=== PATIENT | male | born 1995 | race African-American/Black ===

== ENCOUNTER 2016-11-27 15:40 | Emergency (ER) | payer BC ==
[2016-11-27 16:12] VITALS: BP 112/72
--- NOTE | 2016-11-27 16:17 | ED Physician Documentation ---
Seizure - HISTORIAN Historian: patient - HPI Stated Complaint: Evaluation of Seizures Chief Complaint: Seizure Last known Well Date: 11/27/16 Last Known Well Time: 16:37 (no seizure today) Last known Well Code/Unknown Code: Known Witnessed By: family Preceding Symptoms: none Further Comments: yes (Patient was diagnosed with petimale epileptic siezures at about 13 years of age. Had been on depakote until April of this year. It was controling the seizures well but was having side effects of depression and was mentlaly slowing him down. Was placed on topriramte at that time and he does not feel that it has been holding the seizures as well. Over the last 3 weeks they have been getting worse, he has been blacking some, is having one or two almost every day. Has not been getting as much sleep. Has been stressed out some.) - ROS NEURO/PSYCH: denies: headache, fainting - PAST HX Previous seizure/seizure disorder: other (ADHD, is not taking any medication for it) Other History: none Surgeries/Procedures: none Immunizations: UTD Allergies/Adverse Reactions: Allergies Allergy/AdvReac Type Severity Reaction Status Date / Time amoxicillin Allergy Verified 11/27/16 16:13 Home Medications: Ambulatory Orders Medication Instructions Recorded Amitriptyline HCl [Elavil] 50 mg PO HS 11/27/16 Topiramate [Trokendi Xr] 200 mg PO DAILY 11/27/16 - SOCIAL HX Smoking History: non-smoker Alcohol Use: occasionally Drug Use: none - FAMILY HX Family History: none - VITAL SIGNS Vital Signs: Vital Signs Temp Pulse Resp BP Pulse Ox 97 F L 70 16 112/72 99 11/27/16 15:40 11/27/16 15:40 11/27/16 15:40 11/27/16 15:40 11/27/16 15:40 - REVIEWED ASSESSMENTS Nursing Assessment Reviewed: Yes Vitals Reviewed: Yes Progress - Progress Progress: Mother accompanied patient. Advised that I could do some blood work to make sure electrolytes were not out of titler. She wanted to have his meidcations changed. Advised that I could not do that in the ED, that he needed to have someone follow up once his medications were changed. She had contacted [facility] and they advised her that they would not do it. I advised her to seek the services of a primary care provider until he could be seen by a neurologist but she did not want to do that either. Advised to call neulogist again and see if he could be seen sooner. Neurologist at home that has been prescribing his medication did not want to change them without seeing him. Patient and his mother left AMA. Patient advised to get regular sleep priro to him leaving. Seizure Physical Exam - Physical Exam General Appearance: no acute distress Altered Mental Status Higher Functions: alert, oriented x3, no evidence of acute CVA, mood/affect nml Neck/Back: normal inspection, thyroid normal, supple Respiratory: no resp. distress, breath sounds nml CVS: reg rate & rhythm, heart sounds normal, equal pulses, no murmur, no gallop Abdomen: non-tender, no organomegaly, nml bowel sounds, no distention Skin: warm/dry, normal color Extremities: normal range of motion, non-tender Observed Seizure Activity in ED: other (appear to be having petti mal type) - Nexus Criteria Neg Nexus Criteria: Nexus criteria neg Discharge Clincal Impression: Seizure Referrals: Primary Doctor,No [Primary Care Provider] - 2 Days Disposition: AGAINST MEDICAL ADVICE Decision to Admit: NO Date of Decison to Admit: 11/27/16 Decision Time: 16:32
== END 2016-11-27 16:30 | disposition left against medical advice (07) ==
LOC: ED 15:40
DX: G40.909 Epilepsy, unspecified, not intractable, without status epilepticus (principal); Z53.21 Procedure and treatment not carried out due to patient leaving prior to being seen by health care provider
CPT/HCPCS: 99283

== ENCOUNTER 2017-01-29 15:33 | Emergency (ER) | payer BC ==
--- NOTE | 2017-01-29 15:51 | ED Physician Documentation ---
Seizure - HISTORIAN Historian: patient - HPI Chief Complaint: Seizure Timing/Onset/Duration: unknown duration Last known Well Date: 01/29/17 Last Known Well Time: 09:00 Last known Well Code/Unknown Code: Known Preceding Symptoms: none Character of Seizure(s): denies: incontinence of urine, incontinence of stool Postictal Symptoms: confusion Location of Injury: face (chin) Further Comments: yes (21 year old male patient brought in via EMS after un- witnessed seizure. Patient states he woke up on the ground, "I'm not sure what happened." Patient states he did not take his Keppra last night because he was drinking. Patient reports recently changing to Keppra. Patient states EMS had him take 2 additional 500mg tabs of Keppra on scene.) - ROS NEURO/PSYCH: denies: headache, fainting, dizziness, anxiety, depression, other EYES/ENT: none CVS/RESP: none GI/: denies: nausea, vomiting, diarrhea MS/SKIN/LYMPH: none - PAST HX Previous seizure/seizure disorder: since childhood Etiology: other Other History: other (depression - on amitriptyline) Allergies/Adverse Reactions: Allergies Allergy/AdvReac Type Severity Reaction Status Date / Time amoxicillin Allergy Verified 01/29/17 15:54 Home Medications: Ambulatory Orders Medication Instructions Recorded Levetiracetam [Levetiracetam] 1,000 mg PO BID 01/29/17 - SOCIAL HX Smoking History: non-smoker Alcohol Use: other (last night) Drug Use: marijuana (occassional) - FAMILY HX Family History: denies: none - VITAL SIGNS Vital Signs: Vital Signs Temp Pulse Resp BP Pulse Ox 97.8 F 70 16 101/58 99 01/29/17 15:35 01/29/17 17:46 01/29/17 17:46 01/29/17 17:46 01/29/17 17:46 - REVIEWED ASSESSMENTS Nursing Assessment Reviewed: Yes Vitals Reviewed: Yes Procedures Wound Location: face (chin) Wound Length: 1 Wound's Depth, Shape: irregular Wound Explored: clean Irrigated w/ Saline (ccs): 50 Betadine Prep?: No (chlorhexadine) Anesthesia: 1% Lidocaine (with neut) Suture Size/Type: 6:0 Number of Sutures: 2 Sterile Dressing Applied?: Yes Progress - Progress Progress: Old records reviewed Lab results reviewed with patient. Explained alcohol and marijuana do not mix with Keppra, explained increase risk of seizures with skipping doses and consuming alcohol. Patient verbalized understanding. Patient is followed by neurologist in [place], [place]. Patient refuses transfer, wants to follow up with his neurologist at home. Seizure likely due to missed dose, ETOH consumption and THC use. ED Results Lab/Radiology - Lab Results Lab Results: Lab Results 01/29/17 01/29/17 15:57 15:57 WBC 7.40 K/ul K/ul (4.00-12.00) RBC 5.36 M/ul H M/ul (3.90-5.20) Hgb 16.0 g/dL g/dL (12.0-18.0) Hct 46.3 % % (37.0-53.0) MCV 86.4 fl fl (80.0-100.0) MCH 29.9 pg pg (28.0-34.0) MCHC 34.6 g/dL g/dL (30.0-36.0) RDW 13.0 % % (11.3-14.3) Plt Count 181 K/mm3 K/mm3 (130-400) Neut % (Auto) 42.5 % % (39.0-79.0) Lymph % (Auto) 46.3 % % (16.0-50.0) [place] % (Auto) 5.3 % % (0.0-11.0) Eos % (Auto) 1.5 % % (0.0-6.8) Baso % (Auto) 0.7 (0.0-1.5) Neut # (Auto) 3.1 # k/uL # k/uL (1.4-7.7) Lymph # (Auto) 3.4 # k/uL # k/uL (0.6-4.0) [place] # (Auto) 0.4 # k/uL # k/uL (0.0-0.9) Eos # (Auto) 0.1 # k/uL # k/uL (0.0-0.6) Baso # (Auto) 0.0 # k/uL # k/uL (0.0-0.5) Reactive Lymphs % 3.7 % % (0.0-5.0) Reactive Lymphs # 0.3 # k/uL # k/uL (0.0-0.8) Sodium 142 mmol/L mmol/L (136-145) Potassium 4.2 mmol/L mmol/L (3.5-5.1) Chloride 102 mmol/L mmol/L (98-107) Carbon Dioxide 20 mmol/L L mmol/L (22-30) BUN 10 mg/dL mg/dL (9-20) Creatinine 1.40 mg/dL H mg/dL (0.66-1.25) Estimated Creat Clear 70 Est GFR ( Amer) > 60 (60 - ) Est GFR (Non-Af Amer) > 60 (60 - ) Glucose 95 mg/dL mg/dL (74-106) Calcium 9.0 mg/dL mg/dL (8.4-10.2) Total Bilirubin 0.5 mg/dL mg/dL (0.2-1.3) AST 44 U/L U/L (15-46) ALT 40 U/L U/L (13-69) Alkaline Phosphatase 66 U/L U/L (38-126) Total Protein 8.4 g/dL H g/dL (6.3-8.2) Albumin 4.7 g/dL g/dL (3.5-5.0) - Orders Orders: ED Orders Category Date Time Status CBC/PLATELET/DIFF Stat Lab 01/29/17 15:57 Completed CMP Stat Lab 01/29/17 15:57 Completed LEVETIRACETAM(KEPPRA) LEVEL Stat Lab 01/29/17 16:33 Received UA W/MICRO IF INDICATED Stat Lab 01/29/17 15:39 Ordered Urine drug screen [DRUG SCREEN URINE MEDICAL ONLY] Stat Lab 01/29/17 Ordered 0.9 % Sodium Chloride [Normal Saline] 1,000 ml Med 01/29/17 16:40 Discontinued IV NOW Lidocaine 1% 5ml(IM or SUTURE) [Xylocaine] Med 01/29/17 16:16 Discontinued 50 mg .ROUTE .STK-MED ONE Lidocaine 1% 5ml(IM or SUTURE) [Xylocaine] Med 01/29/17 16:16 Discontinued 50 mg IJ NOW ONE Sodium Bicarbonate [Neut] Med 01/29/17 16:16 Discontinued 2.4 meq INJ .STK-MED ONE Sodium Bicarbonate [Neut] Med 01/29/17 16:16 Discontinued 2.4 meq INJ NOW ONE Seizure Physical Exam - Physical Exam General Appearance: mild distress Altered Mental Status Higher Functions: alert, oriented x3, no evidence of acute CVA, mood/affect nml EENT: nml eye inspection, PERRL, nml ENT inspection, no apparent trauma, pharynx nml Neck/Back: normal inspection, thyroid normal Respiratory: no resp. distress, breath sounds nml, no evidence of rib injury CVS: reg rate & rhythm, heart sounds normal, equal pulses, no murmur, no gallop , PMI nml, no JVD, no friction rub, 24 Abdomen: non-tender, no organomegaly, nml bowel sounds, no distention Skin: warm/dry, normal color, other (1 cm laceration to chin) Extremities: normal range of motion, non-tender, normal inspection, no pedal edema, no calf tenderness, normal capillary refill Observed Seizure Activity in ED: other (no seizure while in ER) - Nexus Criteria Neg Nexus Criteria: Nexus criteria neg Discharge Clincal Impression: Seizure Laceration of chin Qualifiers: Encounter type: initial encounter Qualified Code(s): S01.81XA - Laceration without foreign body of other part of head, initial encounter Referrals: Primary Doctor,No [Primary Care Provider] - 2 Days Additional Instructions: Do not skip your Keppra You cannot drink alcohol and take Keppra. Do not smoke marijuana. It is dangerous to smoke marijuana and drink alcohol when you have a seizure disorder. Take 2 Keppra before bed tonight. Rest - no physical exertion x 48 hours You can wash or shower after 24 hours. Do not soak the wound in water and make sure it is dry afterwards (gently pat the area dry with a clean towel). Do not get into a swimming pool, hot tub, bonner or river until your stitches are removed. To remove your dressing, gently pull it off. If needed, you can dampen it with water then gently pull it off. Clean the laceration twice a day with hibiclens and rinse with water clean away any scabbed area Apply thin coat of antibiotic ointment after cleaning the wound. Cover with non-adherent bandage if able. Have your stitches removed at your doctors office in 5-7 days. Condition: Stable Disposition: 01 HOME, SELF-CARE Decision to Admit: NO Decision Time: 17:35
[2017-01-29 16:10] LABS: BASOPHILS % 0.7 (0.0-1.5); EOSINOPHILS % 1.5 % (0.0-6.8); MEAN CORPUSCULAR HEMOGLOBIN 29.9 pg (28.0-34.0); MEAN CORPUSCULAR VOLUME 86.4 fl (80.0-100.0); MONOCYTES % 5.3 % (0.0-11.0); NEUTROPHILS # 3.1 # k/uL (1.4-7.7)
[2017-01-29] MEDS ORDERED: Lidocaine 1% 5ml(IM or SUTURE)(PAIN CLINIC) IJ ONE (16:16)
[2017-01-29] MEDS ORDERED: SODIUM BICARBONATE 2.4 MEQ VIAL INJ ONE ×2 (16:16)
[2017-01-29] MEDS ORDERED: Lidocaine 1% 5ml(IM or SUTURE)(PAIN CLINIC) ONE (16:16)
[2017-01-29 16:34] LABS: eGFR (African) > 60; eGFR (Non-African) > 60
[2017-01-29] MEDS ORDERED: 0.9 % SODIUM CHLORIDE 1,000 ML IV ONE (16:40)
[2017-01-29 17:49] VITALS: BP 101/58
[2017-01-31 08:25] LABS: APPEARANCE,URINE CLEAR (CLEAR); COLOR,URINE YELLOW (YELLOW); OCCULT BLOOD,URINE NEGATIVE (NEGATIVE); PH URINE 6.5 (5.0 - 8.0)
[2017-01-31 08:26] LABS: AMPHETAMINE NEGATIVE ng/mL (<1000); BARBITURATES NEGATIVE ng/mL (<200); CANNABINOIDS NON NEGATIVE ng/mL (<50); COCAINE NEGATIVE ng/mL (<300); METHAMPHETAMINE NEGATIVE ng/mL (<1000); UROBILINOGEN URINE 0.2 Eu (0.2-1.0)
== END 2017-01-29 17:46 | disposition home or self-care (01) ==
LOC: ED 15:33
DX: S01.81XA Laceration without foreign body of other part of head, initial encounter (principal); W19.XXXA Unspecified fall, initial encounter; Y93.9 Activity, unspecified; Y99.9 Unspecified external cause status; G40.909 Epilepsy, unspecified, not intractable, without status epilepticus
CPT/HCPCS: 12011; 80053; 80177; 80377; 81002; 85025; 96360; 99284; G0481; J7030